=== PATIENT | male | born 1985 | race Caucasian/White ===

== ENCOUNTER → 2016-08-16 | Outpatient (CLI) | payer BC, MEDICAID | LOC: MW.CHFP 14:19 | PROVIDERS: ATTEND Emergency Medicine | DX: R07.9 Chest pain, unspecified (principal) | CPT/HCPCS: 93005 ==

== ENCOUNTER 2016-09-06 10:12 | Day surgery (SDC) | payer BC, MEDICAID ==
[~2016-09-06 10:12] MED LIST: Lactated Ringers 1,000 ML IV SCH
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
[2016-09-06] MEDS ORDERED: Propofol 200 MG/20 ML SDV ONE (11:13)
[2016-09-06] MEDS ORDERED: Lidocaine 2% 5 ML SDV ONE (11:39)
--- NOTE | 2016-09-06 12:00 | PCM.OPNOTE ---
- General Post-Op/Procedure Note Date of Surgery/Procedure: 09/06/16 Operative Procedure(s): egd w bx Findings: see dict [id number] Pre Op Diagnosis: GERD Post-Op Diagnosis: Same Anesthesia Technique: Moderate sedation Primary Surgeon: Miguel Molina Pathology: egd bx Complications: None Condition: Good
--- NOTE | 2016-09-06 12:13 | PCM.POSTAN ---
POST ANESTHESIA ASSESSMENT - MENTAL STATUS Mental Status: alert, oriented - RESPIRATORY Respiratory Status: respiratory rate WNL, airway patent, O2 saturation stable - CARDIOVASCULAR CV Status: pulse rate WNL, blood pressure stable - GASTROINTESTINAL GI Status: no symptoms - PAIN Pain Score: 0 - POST OP HYDRATION Hydration Status: adequate & stable
--- NOTE | 2016-09-06 12:45 | PCM48HPAN ---
Post Anesthesia Note - EVALUATION WITHIN 48HRS OF ANESTHETIC Vital Signs in Normal Range: Yes Patient Participated in Evaluation: Yes Respiratory Function Stable: Yes Airway Patent: Yes Cardiovascular Function Stable: Yes Hydration Status Stable: Yes Pain Control Satisfactory: Yes Nausea and Vomiting Control Satisfactory: Yes Mental Status Recovered: Yes
[2016-09-06 13:36] VITALS: BP 118/70
--- NOTE | 2016-09-06 14:25 | OR ---
SURGEON: Miguel Molina MD DATE OF PROCEDURE: 09/06/2016 PREOPERATIVE DIAGNOSIS: Abdominal pain. POSTOPERATIVE DIAGNOSIS: Acid reflux. PROCEDURE PERFORMED: Esophagogastroduodenoscopy with biopsy. DESCRIPTION OF PROCEDURE: EGD: The patient was taken to the endoscopy room, and with the EXTENSION EDGER, Diprivan was administered. A well-lubricated EGD scope was gently inserted through the oropharynx, down the esophagus, passing through the gastroesophageal junction, into the stomach. The mucosa was examined upon the passage. Any etiology will be noted. Once in the stomach, we continued to advance to the distal antrum, passed through the pylorus into the second portion of the duodenum. Again, the mucosa was examined for any abnormality and etiology. The scope was then retrieved back to the stomach and then retroflexed to look at the fundus of the stomach. If a biopsy was indicated, we will biopsy the antrum, body, and gastroesophageal junction. The air will be sucked out while the scope is retrieved to reduce the patient's discomfort. The patient tolerated the procedure well. There were no intraoperative complications. Dr. Molina was present through the whole procedure. Prior to surgery, a time-out had been called, the patient identified, procedure identified and antibiotic administered. FINDINGS: 1. The patient is easily sedated with EXTENSION EDGER and Diprivan. The patient is soundly snoring. 2. Oropharynx is grossly normal in appearance and proximal esophagus, there is no inflammation or stricture, ulceration, or bleeding, but there is a change in the mucosa at about the mid esophagus and that needs to have a followup exam. The area has a change of little bit diluting, but there is no inflammation or ulceration observed. Distal esophagus, GE junction at 40, shows moderate amount of salmon-colored change consistent with acid reflux, and no ulceration or bleeding observed. Stomach rugae is normal in appearance and there is no blood, no ulcer, and no food particle, no bile. Distal antrum is little bit inflamed. Duodenum bulb and duodenum are grossly normal in appearance and the scope was then retrieved back to the stomach and retroflexed to look at the fundus of the stomach. There is no etiology, no hiatal hernia. Biopsy was done at antrum, body, and GE junction at 40, and sucked out the air. 3. The patient would benefit from a repeat EGD 6 months in the future to assess the denuded area. LIARERE / MODL /[id number] SHANEL
== END 2016-09-06 12:40 | disposition home or self-care (01) ==
LOC: MW.SDS 10:12
PROVIDERS: ATTEND Surgery
PROC: 0DB48ZX Excision of Esophagogastric Junction, Via Natural or Artificial Opening Endoscopic, Diagnostic (ICD-10-PCS; principal; 2016-09-06)
PROC: 0DB68ZX Excision of Stomach, Via Natural or Artificial Opening Endoscopic, Diagnostic (ICD-10-PCS; 2016-09-06)
DX: K29.50 Unspecified chronic gastritis without bleeding (principal); K21.9 Gastro-esophageal reflux disease without esophagitis; J40 Bronchitis, not specified as acute or chronic; E66.9 Obesity, unspecified; Z87.891 Personal history of nicotine dependence; Z88.1 Allergy status to other antibiotic agents; Z91.048 Other nonmedicinal substance allergy status; Z79.899 Other long term (current) drug therapy; Z90.89 Acquired absence of other organs; Z68.37 Body mass index [BMI] 37.0-37.9, adult
CPT/HCPCS: 00740; 88305; 88312; J2704

== ENCOUNTER 2019-07-28 09:07 | Emergency (ER) | payer SELFPAY ==
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
--- NOTE | 2019-07-28 10:59 | CR ---
Chest: 2 views of the chest were obtained. Comparison: Prior chest x-ray of 01/13/16. Heart size and mediastinum are within normal limits. Lungs are clear with no acute parenchymal change. Mild scoliosis is noted within the spine. Impression: 1. Nothing acute is seen on 2 view chest x-ray. Diagnostic code #2 This report was dictated in [place] Standard Time
[2019-07-28 11:09] LABS: BLOOD UREA NITROGEN,BUN 10 mg/dL (7.0-18.0); CARBON DIOXIDE,CO2 29.8 mmol/L (21.0-32.0); CHLORIDE,CL 107 mmol/L (98-107); GLUCOSE RANDOM 100 mg/dL (74-106); POTASSIUM,K 4.3 mmol/L (3.5-5.1); SODIUM,NA 144 mmol/L (136-148)
[2019-07-28 11:15] VITALS: BP 130/84; PULSE 83
== END 2019-07-28 11:26 | disposition home or self-care (01) ==
LOC: MW.ED 09:07
DX: R07.9 Chest pain, unspecified (principal); I10 Essential (primary) hypertension; K21.9 Gastro-esophageal reflux disease without esophagitis; E66.9 Obesity, unspecified; Z68.39 Body mass index [BMI] 39.0-39.9, adult; Z88.1 Allergy status to other antibiotic agents; Z91.048 Other nonmedicinal substance allergy status
CPT/HCPCS: 36415; 71046; 71046-26; 80053; 84484; 85025; 93005; 99285-25